=== PATIENT | male | born 1970 | race Caucasian/White ===

== ENCOUNTER → 2020-10-22 16:32 | Outpatient (CLI) | payer BC, SELFPAY ==
--- NOTE | 2020-10-22 16:45 | XR_ITS ---
PROCEDURE: XR ANKLE LT MIN 3V CLINICAL INDICATION: M25.572 Left ankle pain COMPARISON: No exams were available for comparison FINDINGS: There is an old ununited fracture at the base of the medial malleolus medially. This is nondisplaced. There are mild degenerative changes in the midfoot. Calcaneal spurs present and there are enthesophytes at the Achilles insertion. IMPRESSION: Old fracture at the medial malleolus. No acute finding. Dictated by: Basilio Rendon MD 10/22/2020 18:01 Basilio Renodn MD in [place] 10/22/2020 18:01
== END ==
PROVIDERS: PCP Family Medicine; Visit Provider Family Medicine
DX: M25.572 Pain in left ankle and joints of left foot (principal)
CPT/HCPCS: 73610

== ENCOUNTER 2020-11-12 11:56 | Emergency (ER) | payer BC, SELFPAY ==
[2020-11-12 12:16] VITALS: BP 151/90; PULSE 60; RESP 20; TEMP 36.8; O2SAT 98; BMI 46.2
--- NOTE | 2020-11-12 12:28 | HMH.EDUTC ---
[place] Disposition Clinical Impression: Encounter for laboratory testing for COVID-19 virus Disposition: Home, Self-Care Condition on Discharge: Good Instructions: DI for COVID-19 (Suspected or Confirmed ), Coronavirus Disease 2019, Preventing the Spread of Coronavirus Discharge Instructions Additional Instructions: *Monitor Temp, Over the counter Motrin or Tylenol as directed/as needed Tylenol every 4 hours and Motrin every 6 hours (as long as your family doctor has told you that you can take it) for fever or pain. and straight to ER if unable to lower temp less than 101.0 after medication given *Warm salt water gargles may help to soothe the throat *Throat Lozenges *Warm fluids like tea with honey may help to soothe the throat *Sleep elevated *Humidifier/Vaporizer Follow up IMMEDIATELY for new or worsening symptoms or no Noticeable improvement over the next 48-72 hours. 911 for difficulty breathing or swallowing If you had reaction to Etodolac you could have reaction to Motrin as they are similar medications so make sure to avoid these medication if they are causing you to have rash and itching and follow up with your Family Doctor You were tested for today for COVID19 your test result should be back in the next 24-48 hours, you may call to the [facility] to see if your test results are back in the next 48 hours [phone] [facility] hours are 9am-9pm You was given a handout with instructions for Self Quarantine and Self isolation for while you wait on test results and what to do if they are positive If you are positive the Health Dept will be contacting you also Referrals: Be Terrazas MD [Primary Care Provider] - As needed Forms: Work/School Release Time of Disposition: 12:34 Medical Decision Making - Mikel Inquiry Pt receiving controlled substance: No Mikel was queried for this patient: No Vital Signs: 11/12/20 12:16 Temperature 98.2 F Temperature Source Oral Pulse Rate [Left Radial] 60 Respiratory Rate 20 Blood Pressure [Left Arm] 151/90 H Blood Pressure Mean [Left Arm] 110 Blood Pressure Source [Left Arm] Automatic Cuff 02 Sat by Pulse Oximetry 98 Oxygen Delivery Method Room Air Orders (Tests/Meds): ORDERS Category Date Time Status Covid-19 Nasal PCR ([facility]) Routine Lab 11/12/20 12:20 Received [place] HPI - General Stated complaint: possible infection on Lt ankle Time Seen by Provider: 11/12/20 12:28 Mode of Arrival: Family Vehicle Source of Information: Patient Limitations: No Limitations Description of Symptoms (Recalled from Triage Doc. by RN): Pt initally reports that he thinks he had an allergic reaction to his medication Etodolac, that he began taking about 1.5 wk ago. Pt reports over the weekend he developed itching to his head and the back of his legs. Then, last night the itching was head to toe and he devloped a rash also. Pt also states he had a fever of 100.1 or 101, he can't remember. Pt denies any new changes to his food, laundry detergent, or habits. He denies N/V/D, SOB, or dyspnea. He reports some chest congestion without cough. 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 HEENT Symptoms (Recalled from RN notes): No Resp Symptoms (Recalled from RN notes): Yes Skin Symptoms (Recalled from RN notes): Yes MS Symptoms (Recalled from RN notes): Yes Functional Status (Recalled from RN notes): na - History of Present Illness Provider Complaint: Patient states that he was started on Etodolac over a week ago and he has been taking it as it was prescribed States that he noticed he was feeling a little itchy a couple days ago then last night he had a rash and felt like he had a fever States he took it with a temporal thermometer and contacted his PCP that told him to take some over the counter Benadryl and Tylenol States that the rash and itching then stopped and he felt better State that today his wanted him to get tested for COVID due to she is a high school coach and wanted to be
[2020-11-12 12:43] VITALS: BP 148/89; PULSE 64; RESP 19; TEMP 36.8; O2SAT 99
== END 2020-11-12 12:45 | disposition home or self-care (01) ==
PROVIDERS: Emergency Provider Nurse Practitioner; PCP Family Medicine
DX: Z20.822 Contact with and (suspected) exposure to COVID-19 (principal); L27.1 Localized skin eruption due to drugs and medicaments taken internally; T39.395A Adverse effect of other nonsteroidal anti-inflammatory drugs [NSAID], initial encounter; Y92.019 Unspecified place in single-family (private) house as the place of occurrence of the external cause
CPT/HCPCS: 99202; G0463; U0003

== ENCOUNTER 2021-01-15 13:39 | Outpatient (CLI) | payer BC, SELFPAY ==
[2021-01-15 14:30] VITALS: BMI 45.6
== END 2021-01-15 14:31 | disposition home or self-care (01) ==
PROVIDERS: PCP Family Medicine; Visit Provider Nurse Practitioner
DX: Z02.89 Encounter for other administrative examinations (principal)

== ENCOUNTER 2024-05-10 11:27 | Outpatient (CLI) | payer BC, SELFPAY ==
--- NOTE | 2024-05-10 11:37 | XR_ITS ---
FINAL REPORT CLINICAL HISTORY: TENDINITIS pt states checking for heel spurs COMPARISON: None FINDINGS: RIGHT FOOT 3 views of the right foot were obtained. There is no acute fracture or dislocation. There is a large plantar spur. Prominent Antonia deformity is noted. There is an ossific density over the dorsal aspect of the talonavicular measuring 6 mm. Soft tissues are unremarkable. IMPRESSION: Degenerative/chronic changes without acute bony abnormality. Large plantar spur. Reviewed, Interpreted and Dictated by Jaime Patiño MD Transcribed by Trisha Galicia Authenticated and [facility]
== END 2024-05-10 23:59 | disposition home or self-care (01) ==
LOC: RAD 11:31
PROVIDERS: PCP Family Medicine; Visit Provider Family Medicine
DX: M76.61 Achilles tendinitis, right leg (principal)
CPT/HCPCS: 73630

== ENCOUNTER 2024-06-13 15:00 | Outpatient (RCR) | payer BC, SELFPAY ==
--- NOTE | 2024-05-21 18:29 | HMH.PTOPEV ---
PT Outpatient Evaluation Rehab PT Outpatient Evaluation Start: 05/21/24 16:51 Freq: Status: Active Protocol: Document 05/21/24 16:51 NITA (Rec: 05/21/24 18:27 NITA [id number]) E-signed By Simon Ibrahim, PT Outpatient Therapy Subjective History Subjective History Patient is a 53 year old male presenting to outpatient PT with reports of L foot/ankle pain starting approx 1 year ago. Symptoms consistent with achilles tendonitis. Most recent imaging indicates old fracture of L medial malleolus . Patient occupation truck rental service attendant. Difficulty specifically with climbing into truck. No specific ZBIGNIEW to report. Other comorbidities include hx of cholecystectomy . New diagnosis of cancer in past 12 No months? Chief Complaint Pain,Stiff Symptom Type Sharp,Stabbing Symptoms Relieved By Rest/Positioning,Ice,OTC Meds Symptoms Aggravated By Standing,Physical Activity, Walking Prior Functional Limitations None Current Functional Limitations Housework,Driving,Standing, Walking Symptom Description Constant but Variable Level of pain today (0-10) 1 Pain scale - at its best (0-10) 1 Pain scale - at its worst (0-10) 5 Ankle/Foot Eval Gait Observation General Gait Pattern Observation Antalgic Gait,Decrease Weight Bear (L) Palpation Tenderness left Ankle/Foot Palpation Findings Tenderness Ankle/Foot Palpation Overall Comment distal achilles/medial malleolus ROM Ankle/Foot Dorsiflexion w/Knee Extended -5 Active Range Motion (degrees) Ankle/Foot Plantar Flexion Active Range 46 of Motion (degrees) Ankle/Foot Eversion Active Range of 22 Motion (degrees) Ankle/Foot Inversion Active Range of 19 Motion (degrees) Ankle/Foot ROM Reason Not Measured Within Functional Limits MMT Ankle Dorsiflexion Strength Grade 5 Normal Ankle Plantarflexion Strength Grade 5 Normal Foot Eversion Strength Grade 5 Normal Foot Inversion Strength Grade 5 Normal Special Tests Ankle Anterior Drawer Test Negative Left Ankle Eversion Test Negative Left Foot Interdigital Neuroma Test Negative Left Lower Extremity Functional Index Activities Today, do you or would you have any difficulty at all with: a.Any of your usual work, housework or Quite a bit of difficulty school activities b. Your usual hobbies, recreational or Quite a bit of difficulty sporting activities c. Getting into or out of the bath No difficulty d. Walking between rooms A little bit of difficulty e. Putting on your shoes or socks A little bit of difficulty f. Squatting Extreme difficulty or unable to perform activity g. Lifting an object, like a bag of No difficulty groceries from the floor h. Performing light activities around A little bit of difficulty your home i. Performing heavy activities around Quite a bit of difficulty your home j. Getting into or out of a car A little bit of difficulty k. Walking 2 blocks Extreme difficulty or unable to perform activity m. Going up or down 10 stairs (about 1 Quite a bit of difficulty flight of stairs) n. Standing for 1 hour Quite a bit of difficulty o. Sitting for 1 hour No difficulty p. Running on even ground Extreme difficulty or unable to perform activity q. Running on uneven ground Extreme difficulty or unable to perform activity r. Making sharp turns while running fast Extreme difficulty or unable to perform activity s. Hopping Extreme difficulty or unable to perform activity t. Rolling over in bed No difficulty Outpatient Therapy Assessment Impairments Problems/Impairmments Palpation Tenderness,Impaired Range of Motion,Impaired Gait Pattern,Impaired Walking, Impaired Standing,Impaired Driving,Impaired Household Care,Impaired Stair Climbing, Impaired Incline Stepping, Impaired Stepping on Uneven Surface,Impaired Squatting, Impaired Recreational Activities,Impaired Work Activities,Subjective C/O Pain Prognosis Rehab Potential Good Clinical Impression Consistent with Diagnosis Yes Short Term Goals Number of Weeks 2 Decrease Subjective C/O Pain Yes: 12/28 at worst Patient to be Ind w/ HEP Yes [facility] Goals Number of Weeks 4-6 Decreased Palpation Tenderness Yes: 08/24 Increase Range of Motion Yes: WNL Increase Strength Yes Increase Ability to Walk Yes: 45 min without difficulty Increase Ability to Stand Yes: Improve Tolerance to Work Activities Yes Improve LEFI Score Yes: >60 Decrease Subjective C/O Pain Yes: 08/30 at worst Outpatient Therapy Plan of Care Treatment Plan May Include Therapeutic Exercise Including Home Yes Exercise Program Manual Therapy Techniques Yes Neuromuscular Re-education Yes Therapeutic Activities to Return to Yes Previous Functional/Work Level Gait Training Yes ADL/Self Care Education Yes Dry Needling Yes Thermal Modalities Yes Electrical Stimulation Yes Ultrasound/Phonophoresis Yes Iontophoresis Yes Orthotics/Bracing/Splinting Yes Vasopneumatic Compression Pump Yes Massage Yes Manual Lymphatic Drainage Yes Eval/Re-Eval Yes Frequency Times per week 2-3 Duration Number of Weeks 4-6 Addendums This patient is a candidate for social No or vocational rehab? Patient/Guardian verbally acknowledges Yes understanding of treatment program and consents to further treatment? Patient/Guardian verbally acknowledges Yes understanding of diagnosis, prognosis and goals for treatment? Eval Complexity PT Charges 24922 - Moderate Complexity Shoulder/Elbow Eval Shoulder Objective Measurements Elbow Objective Measurements PHYSICIAN CERTIFICATION: I certify the specified therapy services for Colin Sal are required, authorized, and reviewed every 30 days.
== END 2024-06-13 23:59 | disposition home or self-care (01) ==
LOC: PT 15:00
PROVIDERS: Visit Provider Family Medicine
DX: M76.61 Achilles tendinitis, right leg (principal)
CPT/HCPCS: 97014; 97035; 97110; 97163; 97530; G0283

== ENCOUNTER 2024-07-15 11:19 | Day surgery (SDC) | payer BC, SELFPAY ==
[2024-07-12 12:07] VITALS: BMI 49.7
[2024-07-15] MEDS: LACTATED RINGERS 1000ML 1,000 ML 25 ML IV (12:23)
[2024-07-15 12:25] VITALS: BP 154/93; PULSE 73; RESP 18; TEMP 36.1; O2SAT 95
[2024-07-15 12:27] LABS: POC Glucose,Bedside 91 (70-110)
--- NOTE | 2024-07-15 12:56 | EXP.ANES.CKL ---
[facility] Disclaimer: The information contained in this section may have been updated after the patient was seen, as this information can be updated by other users. Medical History (Updated 07/15/24 @ 12:25 by Rocael Neves RN) No significant past medical history Surgical History History of tonsillectomy History of cholecystectomy Family History Other Diabetes Heart disease Social History (Reviewed 07/15/24 @ 12: by Rocael Neves RN) Smoking Status: Former smoker alcohol intake: never substance use type: denies use current occupational status: employed [employer] Anesthesia Checklist Patient Identification Patient Identification: Verbal (Name & ) Structural Data Admitted From: Home Planned Operative Procedure/s: colonoscoy Consent for Planned Operative Procedure(s) Verified: Yes NPO Status Verified Time NPO: 00:00 Airway Assessment Mallampati Score:: Class II C-Spine Mobility Assessed: Yes TMJ Mobility Assessed: Yes Dentition: Good Dentition Neurological Assessment Level of Consciousness: Awake, Alert and Appropriate Anesthesia Plan Anesthesia Risk discussed: Yes Anesthesia Plan: Verified ASA Class: III Anesthesia Type: MAC
--- NOTE | 2024-07-15 13:31 | P.HP_ITS ---
History of Present Illness *Admission Date: 07/15/24 *Reason for visit:: Screening *History of present illness: Mr. Sal is a 53-year-old gentleman who is here for initial screening colonoscopy. The examination is deemed medically necessary for screening colonoscopy. The patient has been seen, interviewed and examined prior to the procedure by both myself and the anesthesia provider. [facility] Disclaimer: The information contained in this section may have been updated after the patient was seen, as this information can be updated by other users. Medical History (Updated 07/15/24 @ 13:40 by Marino Leal II, MD) No significant past medical history Surgical History History of tonsillectomy History of cholecystectomy Family History Other Diabetes Heart disease Social History (Updated 07/15/24 @ 12:57 by Mckay Hollingsworth CRNA) Smoking Status: Former smoker alcohol intake: never substance use type: denies use current occupational status: employed Travel in the last 8 weeks: None Other Medical History Have you received the Flu Vaccine for this season: No Have you received the Pneumonia Vaccine: No Review of Systems Review of Systems Review of systems (narrative): Negative *Cardiovascular Comments: Negative *Gastrointestinal Comments: Negative *Genitourinary Comments: Negative *Musculoskeletal Comments: Negative *Neurologic Comments: Negative Meds Home Medications and Allergies Home Medications ?Medication ?Instructions ?Recorded ?Confirmed ?Type No Known Home Medications 07/15/24 07/15/24 History New Prescriptions to Start Prescriptions: Allergies Allergy/AdvReac Type Severity Reaction Status Date / Time etodolac AdvReac Mild Rash Verified 07/12/24 12:01 Exam Data for Last 24 hours Vital signs and Labs for Last 24 Hours: Temp Pulse Resp BP Pulse Ox O2 Del Method 97.0 F L 73 18 154/93 H 95 Room Air 07/15/24 12:07/15/24 12:07/15/24 12:07/15/24 12:07/15/24 12:07/15/24 12:25 Laboratory Results - last 24 hr 07/15/24 12:20: POC Glucose 91 I & O for Last 24 hours: Intake & Output 07/12/24 07/13/24 07/14/24 11/25/24 23:59 23:59 23:59 23:59 Weight 400 lb 0.001 oz *Routine HEENT Exam Head: Present normocephalic Eye: Present EOMI and PERRL ENT: Present mucous membranes moist *Routine Neck Exam Neck: Present supple *Routine Respiratory Exam Respiratory: Present CTA bilaterally *Routine Cardiovascular Exam Cardiovascular: Present RRR *Routine Abdominal Exam Abdominal: Present soft and normoactive bowel sounds; Absent tenderness *Routine Rectal Exam Rectal:: deferred *Routine Genitalia Exam Genitalia:: deferred *Routine Extremities Exam Extremities: Absent cyanosis, clubbing or edema *Routine Skin Exam Skin: Present warm; Absent rash *Routine Neurological Exam Neurological: Present alert and oriented X3 Assessment and Plan *Assessment and plan (1) Screening for colon cancer: Status: Acute Category: Medical Code(s): Z12.11 - Encounter for screening for malignant neoplasm of colon Plan A/P: 1. Screening for colon cancer is the preprocedural diagnosis. The patient will be anesthetized/sedated using MAC sedation. The patient has been seen and examined. Cardiac and lung assessment prior to the examination is stable. Proceed with planned screening colonoscopy
[2024-07-15 13:39] VITALS: O2SAT 95
--- NOTE | 2024-07-15 13:40 | P.PCN_ITS ---
[facility] Procedure Note Date: 07/15/24 Time: 13:58 Procedure Note:: Colonoscopy Procedure Report: Colonoscopy with cold snare polypectomy Endoscopist: Marino Leal II, MD Referring physician: Be Terrazas MD Date of Procedure: July 15, 2024 Equipment: Olympus 190 variable stiffness pediatric colonoscope Sedation: MAC sedation Indication: Mr. Sal is a 53-year-old gentleman who is here for initial screening colonoscopy. He reports no abdominal pain, weight loss, change in his bowel habits or rectal bleeding. He reports no family history of colon cancer. Procedure: Prior to the procedure, a history and physical exam was performed, and patient's medications and allergies were reviewed. The risks, benefits and alternatives of the sedation and procedure were discussed with the patient. All questions were answered and informed consent was obtained. The patient was brought to the procedure room. Patient identification and proposed procedure were verified by the physician and the nurse. The patient was placed in a left lateral decubitus position and the scope was passed under direct vision. Throughout the procedure, the patient's blood pressure, pulse, and oxygen saturations were monitored continuously. The colonoscopy was accomplished without difficulty. The patient tolerated the procedure well. Findings: On digital rectal examination there was normal rectal tone. There were no external hemorrhoids. The prostate was 2+, smooth, soft, symmetric without nodules. The colonoscope was introduced through the anal canal to the rectum and advanced to the cecum. The ileocecal valve and appendiceal orifice were identified. The scope was advanced a short distance into the ileum which appeared grossly normal. The scope was then withdrawn into the colon. The cecum, ascending and transverse colon and mucosa were grossly normal. There was a 4 mm polyp in the descending colon removed via cold snare polypectomy. There were scattered diverticuli throughout the descending and sigmoid colon (LEFT colon). The rectum itself was normal. Upon retroflexion within the rectum there were grade 2 internal hemorrhoids. The preparation was excellent throughout with Hull Preparation Score of 9. The cecal time was 12 minutes. Impression: 1. Diminutive descending colon polyp (4 mm) 2. Left-sided diverticulosis 3. Grade 2 internal hemorrhoids Plan: I will follow-up the polyp histology and recommend repeat surveillance colonoscopy again in 7 years based upon the pathology. I would encourage bulking psyllium fiber supplementation on a maintenance basis.
[2024-07-15 13:59] VITALS: BP 137/91; PULSE 77; RESP 18; TEMP 36.1; O2SAT 96
[2024-07-15 14:09] VITALS: BP 131/91; PULSE 84; RESP 18; O2SAT 98
[2024-07-15 14:19] VITALS: BP 138/67; PULSE 79; RESP 18; O2SAT 98
[2024-07-15 15:00] VITALS: BP 148/80; PULSE 70; RESP 18; O2SAT 97
== END 2024-07-15 15:00 | disposition home or self-care (01) ==
PROVIDERS: PCP Family Medicine; Visit Provider Internal Medicine Gastroenterology
PROC: (CPT 45385; principal; 2024-07-15 13:30)
DX: K63.5 Polyp of colon (principal); K57.30 Diverticulosis of large intestine without perforation or abscess without bleeding; K64.1 Second degree hemorrhoids; Z12.11 Encounter for screening for malignant neoplasm of colon
CPT/HCPCS: 45385; 82962; J7120

== ENCOUNTER 2025-08-18 16:39 | Outpatient (CLI) | payer BC, SELFPAY ==
--- OUTSIDE RECORDS SUMMARY | 2024-05-10 05:45 | XMS_ITS ---
Author Organization [facility] Address [address] [place] [id number] Care Team Providers Care Seismographer Name Role Phone Be Terrazas Primary Care Provider Allergies Allergen (clinical drug ingredient) Drug/Non Drug Allergy documented on EMR Reaction Allergy Type Onset Date Status Medicinal cephalosporin and acting as antibacterial agent (FN) SPORINS (uncoded) rash Allergy Active Results Component Value Reference Range Notes P-Comprehensive Metabolic Pa niyah (CMP) Reviewed date:05/13/2024 09:51:05 AM Interpretation:gluc 109 Performing Lab: Notes/Report: Test performed by [facility] [address] [place] [address] , [address], [place] [address] Ino Tran MD, [employer] CLIA: [id number] Sodium 142 135-145 mmol/L Potassium 4.6 3.5-5.3 mmol/L Chloride 103 97-108 mmol/L CO2 29 22-32 mmol/L Glucose 109 65-99 mg/dL BUN 18 6-20 mg/dL Creatinine 0.91 0.70-1.30 mg/dL Calcium 9.3 8.6-10.4 mg/dL eGFR by Creatinine 102 >59 mL/min/1.73m2 Protein 7.1 6.0-8.3 g/dL Albumin 4.2 3.5-5.3 g/dL Alkaline Phosphatase 58 40-129 IU/L ALT (SGPT) 25 <5-55 IU/L AST (SGOT) 15 <5-46 IU/L Bilirubin, Total 0.7 <0.2-1.2 mg/dL A/G Ratio 1.4 1.1-2.5 P-Lipid Panel Reviewed date:05/13/2024 09:51:05 AM Interpretation:chol 203, hdl 36, chol/hdl 5.64, non-hdl 167, ldl 138, ldl/hdl 3.8 Performing Lab: Notes/Report: Test performed by [facility], [facility] [address] , [address], [place] [address] Ino Tran MD, T[employer]ic CLIA: [id number] Cholesterol 203 <200 mg/dL Triglycerides 145 <150 mg/dL HDL Cholesterol 36 >39 mg/dL Cholesterol / HDL Ratio 5.64 0.00-4.99 Ratio Non-HDL Cholesterol 167 <130 mg/dL LDL Cholesterol (Calculation) 138 <130 mg/dL LDL Cholesterol Levels* Less than 100 mg/dL Optimal 100 to 129 mg/dL Near Optimal/ Above Optimal 130 to 159 mg/dL Borderline High 160 to 189 mg/dL High 190 mg/dL and above Very High * Categories as recommended by the 2004 ATPIII guidelines LDL/HDL Ratio 3.8 <3.3 Ratio LDL Cholesterol Patient History Test Date: 05/10/2024 LDL Results: 138 Units: mg/dL % Change: - P-PSA Reviewed date:05/13/2024 09:51:05 AM Interpretation:Normal Performing Lab: Notes/Report: Test performed by [facility] [address] [place] [address] , [address], [place] [address] Ino Tran MD, Tire Shop Mechanic CLIA: [id number] PSA 0.35 <4.00 ng/mL Please note this is an ultrasensitive PSA assay with a lower limit of detection of 0.014 ng/mL. This test is performed by the Karla ECLIA methodology. Values obtained with different assay methods or kits cannot be directly compared. P-TSH reflex to FT4 Reviewed date:05/13/2024 09:51:05 AM Interpretation:Normal Performing Lab: Notes/Report: Test performed by [facility] [address] [place] [address] , [address], [place] [address] Ino Tran MD, Tire Shop Mechanic CLIA: [id number] TSH reflex to FT4 2.60 0.43-5.25 mU/L X ray : Foot, right Reviewed date:05/13/2024 09:51:05 AM Interpretation: Performing Lab: Notes/Report: Reason For Referral Reason Patent prefers a lat e afternoon appt. at [facility] Diagnosis 1 Right Achilles tendi nitis (M76.61) Referral Organization [facility] Referring Provider First Name Be Referring Provider Last Name Mk Referring Provider Speciality Family Pra ctice Referred Provider Physical Therapy, . Referred Provider Specialty Physical The rapist General Notes Mara Hollingsworth 05/13/20 24 9:02:28 AM > faxed to [facility] PT Referral Priority Routine REASON FOR VISIT check up and blood work, trouble with heel Medications Medication SIG (Take, Route, Fr equency, Duration) Notes Start Date End Date Status Tylenol 325 MG 1 tablet as needed Orally every 6 hrs Active Problems Problem Type SNOMED Code ICD Code Onset Dates Problem Status W/U Status Risk Notes Problem Pure hypercholesterolemia (223823648) Pure hypercholesterolemia (E78.00) Active confirmed Vital Signs Blood pressure systolic 130 mm Hg 05/10/20 24 Blood pressure diastolic 70 mm Hg 024 Heart Rate 73 /min 05/10/2024 Height 72.75 in 05/10/2024 Weight 397.8 lbs 05/10/2024 BMI 52.84 kg/m2 05/10/2024 Encounters Encounter Location Date Provider Diagnosis [facility] [address] [facility] [address] [place] [phone] 05/10/2024 Be Terrazas Pure hypercholestero lemia E78.00 ; Right Achilles tendinitis M76.61 ; Prostate cancer screening Z12.5 ; Colon cancer screening Z12.11 ; Sebaceous cyst L72.3 and Morbid obesity due to excess calories E66.01 Assessments Encounter Date Diagnosis (ICD Code) Assessment Notes Treatment Notes Treatment Clinical Notes Section Notes 05/10/2024 Pure hypercholesterolemia (ICD-10 - E78.00) 05/10/2024 Right Achilles tendinitis (ICD-10 - M76.61) 05/10/2024 Prostate cancer screening (ICD-10 - Z12.5) 05/10/2024 Colon cancer screeni ng (ICD-10 - Z12.11) 05/10/2024 Sebaceous cyst (ICD- 10 - L72.3) Plan excision at follow up 05/10/2024 Morbid obesity due t o excess calories (ICD-10 - E66.01) Discussed using Wegovy Plan Of Treatment Treatment Notes Assessment Notes Sebaceous cyst Plan excision at [facility] [place] Morbid obesity due to excess calories Di scussed using Wegovy Pending Test Test Name Order Date colonoscopy 05/10/2024 Referrals Referral Date Details 05/10/2024 05/10/2024, Patent p refers a late afternoon appt. at [facility], . Physical Therapy Next Appt Details Follow Up: skin procedure on a Monday, Reason: Provider Name:Be Galo , 08/18/2025 04:15:00 PM, [address] [facility], [address], [place], [id number], Progress Notes * Sylwia ALICEAOB:1970 ( 54 yo M)Acc No.[id number]:05/10/2024 Progress Notes Patient: Colin SMITH Provider: Juan Luis Terrazas M.D. :1970 A ge:53 Y S ex:Male Date:05/10/2024 Address:[address] [place] [address], [place], [id number] Subjective: * Chief Complaints: * 1 . Check up and blood work, trouble with heel. * HPI: A nkle/Foot: 53 year old male presents with c/o Pain P t is here today for c/o having trouble with his right heel. Pt was here in December for pain in his rt Achilles tendon. Pt sts he takes an extra strength Tylenol and sts that it helps some and makes it manageable. H PI: c/o Patient is here today for P t is here today for a check up and blood work. N clau: c/o No complaints P t sts he had a place cut off of his neck before, but sts he would like it looked at as it may need cut out again. Pt sts that at times it does itch. * ROS: D ERMATOLOGY: no R lola. n o H kirstie. G ASTROENTEROLOGY: no N ausea. n o V omiting. U ROLOGY: no D ifficulty urinating. n o B lood in urine. * Medical History: H yperlipidemia, External Hemorrhoids, Kidney stones. * Surgical History: T onsillectomy 1994, Cholecystectomy 1997, Vasectomy 2009. * Hospitalization/Major Diagno stic Procedure: D enies Past Hospitalization. * Family History: F ather: , diagnosed with Heart Disease. M other: alive. P aternal Grand Father: . P aternal Grand Mother: , diagnosed with Diabetes. M aternal Grand Father: . M aternal Grand Mother: , diagnosed with Diabetes. 1 brother(s) , 2 sister(s) - healthy. 2 son(s) , 1 daughter(s) - healthy. . * Social History: C URRENT TOBACCO USE: No . C affeine: yes, frequency: coffee, soda drinks - daily. Home smoke detector use: yes. Alcohol: No. * Medications: T aking Tylenol 325 MG Tablet 1 tablet as needed Orally every 6 hrs , Medication List reviewed and reconciled with the patient * Allergies: SPORINS : rash - Allergy. Objective: * Vitals: W t:397.8, Temp:99.0, BP:130/70, HR:73, O2 Sat:97% on RA, Nurse:DEMETRIS, Ht: 72.75, BMI:52.84. * Examination: G eneral Examination: General Appearance: N AD. H eart: R SR. L ungs:?clear to auscultation. S kin: l eft lateral neck with a 7 mm wide subcutaneous mass.?Extremities: s ome swelling and tenderness to palpation over the lower right Achilles insertion. Assessment: * Assessment: 1. P ure hypercholesterolemia - E78.00 (Primary) 2 . R ight Achilles tendinitis - M76.61 3 . P rostate cancer screening - Z12.5 4 . C olon cancer screening - Z12.11 5 . S ebaceous cyst - L72.3 6 . Morbid obesity due to excess calories - E66.01 Plan: * Treatment: Value Reference Range A /G Ratio 1.4 1.1-2.5 - * A lbumin 4.2 3.5-5.3 - g/dL * A lkaline Phosphatase 58 40-129 - IU/L * A LT (SGPT) 25 <5-55 - IU/L * A ST (SGOT) 15 <5-46 - IU/L * B ilirubin, Total 0.7 <0.2-1.2 - mg/dL * B UN 18 6-20 - mg/dL * C alcium 9.3 8.6-10.4 - mg/dL * C hloride 103 97-108 - mmol/L * C O2 29 22-32 - mmol/L * C reatinine 0.91 0.70-1.30 - mg/dL * G lucose 109 H 65-99 - mg/dL * P otassium 4.6 3.5-5.3 - mmol/L * S odium 142 135-145 - mmol/L * P rotein 7.1 6.0-8.3 - g/dL * e GFR by Creatinine 102 >59 - mL/min/1.73m2 * Ebony Grissom 05/13/2024 9:50: 58 AM >See phone encounter ?LAB: P-Lipid Panel (Collection Date & Time - 05/10/2024 10:20 AM)?chol 203, hdl 36, chol/hdl 5.64, non-hdl 167, ldl 138, ldl/hdl 3.8* Value Reference Range C holesterol / HDL Ratio 5.64 H 0.00-4.99 - Ratio * C holesterol 203 H <200 - mg/dL * H DL Cholesterol 36 L >39 - mg/dL * L DL Cholesterol (Calculation) 138 H <130 - mg/d L * L DL/HDL Ratio 3.8 H <3.3 - Ratio * N on-HDL Cholesterol 167 H <130 - mg/dL * T riglycerides 145 <150 - mg/dL * Ebony Grissom 05/13/2024 9:50: 58 AM >See phone encounter ?LAB: P-TSH reflex to FT4 (Collection Date & Time - 05/10/2024 10:20 AM)? Normal* Value Reference Range T SH reflex to FT4 2.60 0.43-5.25 - mU/L * Ebony Grissom 05/13/2024 9:50: 58 AM >See phone encounter 2.?Right Achilles tendinitis?Imaging: X ray : Foot, right (Performed Date - 05/10/2024)* Ebony Grissom 05/13/2024 9:50: 58 AM >See phone encounter ? Referral To:. Physical Therapy??Physical Therapist ?Reason:Patent prefers a late afternoon appt. at [facility] 3.?Prostate cancer screening?LAB: P-PSA (Collection Date & Time - 05/10/2024 10:20 AM)?Normal* Value Reference Range P SA 0.35 <4.00 - ng/mL * Ebony Grissom 05/13/2024 9:50: 58 AM >See phone encounter 4.?Colon cancer screening?Imaging: colonoscopy* [facility] with Elvis on a Monday Mara Hollingsworth 05/10/2024 11:23:40 AM > faxed to Dr. Leal office 5.?Sebaceous cyst? Notes: Plan excision at follow up??6.?Morbid obesity due to excess calories? Notes: Discussed using Wegovy?? * Follow Up: s kin procedure on a Monday * Images: Billing Information: * Visit Code: 35552 Office Visit, Est Pt., Level 4. * Procedure Codes: * Electronic signature of Allison Terrazas MD on 08/18/2025 at 04:42 PM EST Sign off status: Pending * Provider: Juan Luis Terrazas M.D. Date: 0 05/10/2024 Generated for Gen tee/Isabelle/eTransmitting on: 1 04:42 PM EST History and Physical Notes * HPI (History of Present Illness) Category Sub-Category Detail Notes Category Not es Neck No complaints Pt sts he had a place cut off of his neck before, but sts he would like it looked at as it may need cut out again. Pt sts that at times it does itch Ankle/Foot Pain Pt is here today for c/o having trouble with his right heel. Pt was here in December for pain in his rt Achilles tendon. Pt sts he takes an extra strength Tylenol and sts that it helps some and makes it manageable HPI Patient is here today for Pt is here today for a check up and blood work Examination Category Sub-Category Detail Notes Category Not es General Examination Heart: RSR Lungs: clear to auscultatio n Extremities: some swelling and te nderness to palpation over the lower right Achilles insertion General Appearance: NAD Skin: left lateral neck wi th a 7 mm wide subcutaneous mass Consultation Request Notes Referral Date Referring Provider Referred Provider Not es 05/10/2024 Be Terrazas Physical Therapy, . Fidel valenzuela prefers a late afternoon appt. at [facility]
--- OUTSIDE RECORDS SUMMARY | 2024-06-03 12:30 | XMS_ITS ---
Author Organization [facility] Address [address] [facility] [address] [place] [id number] Care Team Providers Care Free Lance Artist Name Role Phone Be Terrazas Primary Care Provider [phone] Allergies Allergen (clinical drug ingredient) Drug/Non Drug Allergy documented on EMR Reaction Allergy Type Onset Date Status Medicinal cephalosporin and acting as antibacterial agent (FN) SPORINS (uncoded) rash Allergy Active REASON FOR VISIT Cyst Removed from Neck Medications Medication SIG (Take, Route, Fr equency, Duration) Notes Start Date End Date Status Tylenol 325 MG 1 tablet as needed Orally every 6 hrs Active Vital Signs Blood pressure systolic 130 mm Hg 06/03/20 24 Blood pressure diastolic 72 mm Hg 024 Heart Rate 86 /min 06/03/2024 Height 72.75 in 06/03/2024 Weight 401 lbs 06/03/2024 BMI 53.26 kg/m2 06/03/2024 Encounters Encounter Location Date Provider Diagnosis [facility] [address] [facility] [address] [place] [id number] 06/03/2024 Be Terrazas Sebaceous cyst L72.3 Assessments Encounter Date Diagnosis (ICD Code) Assessment Notes Treatment Notes Treatment Clinical Notes Section Notes 06/03/2024 Sebaceous cyst (ICD-10 - L72.3) Plan Of Treatment Next Appt Details Follow Up: 1 Week, Reason: Provider Name:Be gunter, 08/18/2025 04:15:00 PM, [address] [facility], [address], [place], [phone], Procedure Notes * Category Sub-Category Detail Notes Excision Pre-Op diagnosis: sebaceous cyst Post-Op diagnosis same Location and size: left, neck, 7 mm wid e Anesthesia: 1% Lidocaine with Ep inephrine, 1 mL Pre-Op: Informed consent was reviewed with the patient, treatment alternatives were discussed, consequences of refusal of treatment discussed, risks and benefits discussed including but not limited to scarring, infection, bleeding, recurrence, need for further treatment., The patient's questions were answered to his/her satisfaction., Signed consent in chart Procedure: The patient was plac ed in a supine position. The area was prepped and draped in sterile fashion. Four mm margins were taken to the level of the subcutaneous fat with a # 15 blade scalpel. The lesion was removed with Adson forceps and Frost tenotomy scissors. Hemostasis was accomplished with electrocautery and pressure Closure: 4-0 Ethilon was plac ed in a simple interrupted manner (3 sutures total) in the epidermis Follow up: 7 days for suture re moval Post-Op wound care: Daily antibiotic oin tment, Pt to notify office if any difficulty Progress Notes * Sylwia ALICEAOB:1970 ( 54 yo M)Acc No.[id number]:06/03/2024 Progress Notes Patient: Colin SMITH Provider: Juan Luis Terrazas M.D. :1970 A ge:53 Y S ex:Male Date:06/03/2024 Address:[address] [place] [address], [place], [place] Subjective: * Chief Complaints: * 1 . Cyst Removed from Neck. * HPI: D ermatology: 53 year old male presents with c/o cyst P t here today for sebaceous cyst removal from behind L ear . * ROS: D ERMATOLOGY: no R lola. n o H kirstie. G ASTROENTEROLOGY: no N ausea. n o V omiting. U ROLOGY: no D ifficulty urinating. n o B lood in urine. * Medical History: H yperlipidemia, External Hemorrhoids, Kidney stones. * Surgical History: T onsillectomy 1994, Cholecystectomy 1997, Vasectomy 2009. * Family History: F ather: , diagnosed [...] rash - Allergy. Objective: * Vitals: W t:401, Temp:98.1, BP:130/72, HR:86, Nurse:lilia, Ht: 72.75, BMI:53.26. * Examination: G eneral Examination: General Appearance: N AD. H eart: R SR. L ungs:?clear to auscultation. S kin: l eft lateral neck with a 7 mm wide subcutaneous mass.? Assessment: * Assessment: 1. S ebaceous cyst - L72.3 (Primary) Plan: * Treatment: * Procedures: E xcision: Pre-Op diagnosis: s ebaceous cyst. P ost-Op diagnosis?same. L ocation and size: l eft, neck, 7 mm wide. A nesthesia: 1 % Lidocaine with Epinephrine, 1 mL. P re-Op: I nformed consent was reviewed with the patient, treatment alternatives were discussed, consequences of refusal of treatment discussed, risks and benefits discussed including but not limited to scarring, infection, bleeding, recurrence, need for further treatment., The patient's questions were answered to his/her satisfaction., Signed consent in chart. P rocedure: T he patient was placed in a supine position. The area was prepped and draped in sterile fashion. Four mm margins were taken to the level of the subcutaneous fat with a # 15 blade scalpel. The lesion was removed with Adson forceps and Frost tenotomy scissors. Hemostasis was accomplished with electrocautery and pressure. C losure: 4 -0 Ethilon was placed in a simple interrupted manner (3 sutures total) in the epidermis. F ollow up: 7 days for suture removal. P ost-Op wound care: D aily antibiotic ointment, Pt to notify office if any difficulty. * Procedure Codes: 1 1401 EXCISION BENIGN LESION, TRUNK,ARMS,LEG, 0.6 TO 1.0 CM * Follow Up: 1 Week * Images: Billing Information: * Visit Code: * Procedure Codes: 44495 EXCISION BENIGN LESION, TRUNK,ARMS,LEG, 0.6 TO 1.0 CM. * Electronic signature of Allison Terrazas MD on 08/18/2025 at 04:42 PM EST Sign off status: Pending * Provider: Juan Luis Terrazas M.D. Date: 1 Generated for Gen tee/Isabelle/Cliff on: 04:42 PM EST History and Physical Notes * HPI (History of Present Illness) Category Sub-Category Detail Notes Category Not es Dermatology cyst Pt here today fo r sebaceous cyst removal from behind L ear Examination Category Sub-Category Detail Notes Category Not es General Examination Heart: RSR Lungs: clear to auscultatio n General Appearance: NAD Skin: left lateral neck wi th a 7 mm wide subcutaneous mass
--- OUTSIDE RECORDS SUMMARY | 2024-06-10 10:00 | XMS_ITS ---
Author Organization [facility] Address [address] [facility] [address] [place] [phone] Care Team Providers Care Chinese Herbalist Name Role Phone Be Terrazas Primary Care Provider Allergies Allergen (clinical drug ingredient) Drug/Non Drug Allergy documented on EMR Reaction Allergy Type Onset Date Status Medicinal cephalosporin and acting as antibacterial agent (FN) SPORINS (uncoded) rash Allergy Active REASON FOR VISIT remove stiches Medications Medication SIG (Take, Route, Fr equency, Duration) Notes Start Date End Date Status Tylenol 325 MG 1 tablet as needed Orally every 6 hrs Active Vital Signs Blood pressure systolic 130 mm Hg 06/10/20 24 Blood pressure diastolic 70 mm Hg 024 Heart Rate 85 /min 06/10/2024 Height 72.75 in 06/10/2024 Weight 401.6 lbs 06/10/2024 BMI 53.34 kg/m2 06/10/2024 Encounters Encounter Location Date Provider Diagnosis [facility] [address] [facility] [address] [place] [phone] 06/10/2024 Be Terrazas Visit for suture removal Z48.02 Assessments Encounter Date Diagnosis (ICD Code) Assessment Notes Treatment Notes Treatment Clinical Notes Section Notes 06/10/2024 Visit for suture removal (ICD-10 - Z48.02) Plan Of Treatment Next Appt Details Follow Up: prn, Reason: Provider Name:Be gunter, 08/18/2025 04:15:00 PM, [address] [facility], [address], [place], [phone], Procedure Notes * Category Sub-Category Detail Notes Suture Removal Procedure: The area was doris ansed with alcohol, sutures were removed with forceps and suture cutting scissors Progress Notes * Sylwia ALICEAOB:1970 ( 54 yo M)Acc No.[id number]:06/10/2024 Progress Notes Patient: Colin SMITH Provider: Juan Luis Terrazas M.D. :1970 A ge:53 Y S ex:Male Date:06/10/2024 Address:[address] [place] [address], [facility] Subjective: * Chief Complaints: * 1 . Remove stiches. * HPI: D ermatology: 53 year old male presents with c/o cyst P t here to have stitches removed from behind lt ear. Pt had cyst removed 06/03/2024. * ROS: C ARDIOLOGY: no D izziness. n o C hest pain. G ASTROENTEROLOGY: no N ausea. n o [...] rash - Allergy. Objective: * Vitals: W t:401.6, Temp:97.8, BP:130/70, HR:85, Nurse:lilia, Ht: 72.75, BMI:53.34. * Examination: G eneral Examination: General Appearance: N AD. S kin: s kin posterior to left ear with a well healed surgical wound with [address] Assessment: * Assessment: 1. V isit for suture removal - Z48.02 (Primary) Plan: * Treatment: * Procedures: S uture Removal: Procedure: T he area was cleansed with alcohol, sutures were removed with forceps and suture cutting scissors. * Follow Up: p rn * Images: Billing Information: * Visit Code: * Procedure Codes: * Electronic signature of Allison Terrazas MD on 08/18/2025 at 04:42 PM EST Sign off status: Pending * Provider: Juan Luis Terrazas M.D. Date: 1 Generated for Gen tee/Isabelle/Melanyitting on: 04:42 PM EST History and Physical Notes * HPI (History of Present Illness) Category Sub-Category Detail Notes Category Not es Dermatology cyst Pt here to have stitches removed from behind lt ear. Pt had cyst removed 06/03/2024 Examination Category Sub-Category Detail Notes Category Not es General Examination General Appearance: NAD Skin: skin posterior to le ft ear with a well healed surgical wound with [address]
--- OUTSIDE RECORDS SUMMARY | 2024-06-28 10:45 | XMS_ITS ---
Author Organization [facility] Address [address] [place] [phone] Care Team Providers Care Carbon Lamp Cleaner Name Role Phone Be Terrazas Primary Care Provider Allergies Allergen (clinical drug ingredient) Drug/Non Drug Allergy documented on EMR Reaction Allergy Type Onset Date Status Medicinal cephalosporin and acting as antibacterial agent (FN) SPORINS (uncoded) rash Allergy Active REASON FOR VISIT muscle spasms Medications Medication SIG (Take, Route, Fr equency, Duration) Notes Start Date End Date Status Tylenol 325 MG 1 tablet as needed O rally every 6 hrs Active tiZANidine HCl 4 MG 1 tablet as needed O rally Three times a day 06/28/2024 Active Vital Signs Blood pressure systolic 126 mm Hg 06/28/20 24 Blood pressure diastolic 74 mm Hg 024 Heart Rate 90 /min 06/28/2024 Height 72.75 in 06/28/2024 Weight 404 lbs 06/28/2024 BMI 53.66 kg/m2 06/28/2024 Encounters Encounter Location Date Provider Diagnosis [facility] [address] [facility] [address] [place] [phone] 06/28/2024 Be Terrazas Acute left-sided low back pain, unspecified whether sciatica present M54.50 and Muscle spasm of back M62.830 Assessments Encounter Date Diagnosis (ICD Code) Assessment Notes Treatment Notes Treatment Clinical Notes Section Notes 06/28/2024 Acute left-sided low back pain, unspecified whether sciatica present (ICD-10 - M54.50) heating pad to affected areas 2 to 3 times a day 06/28/2024 Muscle spasm of back (ICD-10 - M62.830) Plan Of Treatment Medication Medication Name Sig Start Date Stop Date Notes tiZANidine HCl 4 MG 1 tablet as needed O rally Three times a day 06/28/2024 Treatment Notes Assessment Notes Acute left-sided low back pa in, unspecified whether sciatica present heating pad to affected areas 2 to 3 times a day Next Appt Details Follow Up: via phone to repo rt progress, Reason: Provider Name:Be Galo ry, 08/18/2025 04:15:00 PM, [address], [address], [place], [place], [phone], Progress Notes * Sylwia ALICEAOB:1970 ( 54 yo M)Acc No.[id number]:06/28/2024 Progress Notes Patient: Colin SMITH Provider: Juan Luis Terrazas M.D. :1970 A ge:53 Y S ex:Male Date:06/28/2024 Address:[address] [place] [address], [facility], [facility] Subjective: * Chief Complaints: * 1 . Muscle spasms. * HPI: M id Back: 53 year old male presents with c/o Left Side P t complains of pain in the middle of his back on the lt side for about a week. Pt states he had this issue in the past and was told it is muscle spasms . Pt states when he pulls himself into his truck the pain worsens . * ROS: D ERMATOLOGY: no R [...] rash - Allergy. Objective: * Vitals: W t:404, Temp:98.1, BP:126/74, HR:90, Nurse:lilia, Ht: 72.75, BMI:53.66. * Examination: G eneral Examination: General Appearance: N AD. B ack: l eft upper lumbar paraspinal muscle spasms with some tenderness to palpation. Assessment: * Assessment: 1. A cute left-sided low back pain, unspecified whether sciatica present - M54.50 (Primary)? 2. M uscle spasm of back - M62.830 Plan: * Treatment: 2. M uscle spasm of back Start tiZANidine HCl Tablet, 4 MG, 1 tablet as needed, Orally, Three times a day, 45, Refills 0.? * Follow Up: v ia phone to report progress * Images: Billing Information: * Visit Code: 96115 Office Visit, Est Pt., Level 3. * Procedure Codes: * Electronic signature of Allison Terrazas MD on 08/18/2025 at 04:41 PM EST Sign off status: Pending * Provider: Juan Luis Terrazas M.D. Date: 08/28/2023 Generated for Gen tee/Isabelle/Cliff on: 04:41 PM EST History and Physical Notes * HPI (History of Present Illness) Category Sub-Category Detail Notes Category Not es Mid Back Left Side Pt complains of pain in the middle of his back on the lt side for about a week. Pt states he had this issue in the past and was told it is muscle spasms . Pt states when he pulls himself into his truck the pain worsens Examination Category Sub-Category Detail Notes Category Not es General Examination General Appearance: NAD Back: left upper lumbar pa raspinal muscle spasms with some tenderness to palpation
--- OUTSIDE RECORDS SUMMARY | 2025-07-08 11:00 | XMS_ITS ---
Author Organization [facility] Address [address] [place] [id number] Care Team Providers Care Registered Nurse Name Role Phone Be Terrazas Primary Care Provider Erasmo Brooks [phone] Allergies Allergen (clinical drug ingredient) Drug/Non Drug Allergy documented on EMR Reaction Allergy Type Onset Date Status Medicinal cephalosporin and acting as antibacterial agent (FN) SPORINS (uncoded) rash Allergy Active Results Component Value Reference Range Notes Glycohemoglobin A1c (in hous e) Reviewed date:07/09/2025 12:59:51 PM Interpretation:5.6 Performing Lab: Notes/Report: 5.6 glycohemoglobin 5.6% 5 - 6.5 % P-Comprehensive Metabolic Pa niyah (CMP) Reviewed date:07/14/2025 02:56:22 PM Interpretation:bili 1.4 Performing Lab: Notes/Report: Test performed by [facility] [address] , [address], [place] [address] Marcelle Dial MD, PhD, [facility], [employer] CLIA: [id number] Sodium 138 135-145 mmol/L Potassium 5.0 3.5-5.3 mmol/L Chloride 100 97-108 mmol/L CO2 30 20-32 mmol/L Glucose 88 65-99 mg/dL BUN 19 6-20 mg/dL Creatinine 1.01 0.70-1.30 mg/dL Calcium 10.1 8.6-10.4 mg/dL eGFR by Creatinine 89 >59 mL/min/1.73m2 Protein 7.7 6.0-8.3 g/dL Albumin 4.7 3.5-5.3 g/dL Alkaline Phosphatase 61 40-129 IU/L ALT (SGPT) 16 <5-55 IU/L AST (SGOT) 16 <5-46 IU/L Bilirubin, Total 1.4 <0.2-1.2 mg/dL A/G Ratio 1.6 1.1-2.5 P-Lipid Panel Reviewed date:07/14/2025 02:56:22 PM Interpretation:chol 208, trigs 178, hdl 32, chol//hdl 6.5, ldl 140, ldl/hdl 4.36 Performing Lab: Notes/Report: Test performed by [facility], [address] , [place] [address] Marcelle Dial MD, PhD, FCAP, [employer] CLIA: [id number] Lipid Panel Footnote See Below *Based on optimal reference values. Please refer to the DOS for additional information regarding diagnostic lipid reference ranges, patient management based on the recently updated lipid guidelines ([place] [employer]/[place] Heart Association Task Force on Clinical Practice Guidelines (2018), and pediatric diagnostic lipid reference values (<18 years old). Total Cholesterol 208 <200 mg/dL Triglycerides 178 <150 mg/dL HDL Cholesterol 32 >40 mg/dL Total Cholesterol / HDL Ratio* 6.50 <4.99 Ratio Non-HDL Cholesterol 176 <130 mg/dL LDL Cholesterol (Calculation) 140 <100 mg/dL LDL / HDL Ratio* 4.39 <2.49 Ratio LDL Cholesterol Patient History Test Date: 05/10/2024 LDL Results: 138 Units: mg/dL % Change: - Test Date: 07/08/2025 LDL Results: 140 Units: mg/dL % Change: +1% P-PSA Reviewed date:07/14/2025 02:56:22 PM Interpretation:Normal Performing Lab: Notes/Report: Test performed by [facility] [address] , [place] [address] Marcelle Dial MD, PhD, [facility], [employer] CLIA: [id number] PSA 0.54 <4.00 ng/mL Please note this is an ultrasensitive PSA assay with a lower limit of detection of 0.014 ng/mL. This test is performed by the [employer] ECLIA methodology. Values obtained with different assay methods or kits cannot be directly compared. REASON FOR VISIT wrist and bloodwork Medications Medication SIG (Take, Route, Fr equency, Duration) Notes Start Date End Date Status Meloxicam 15 MG 1 tablet Orally Once a day 025 Active Tylenol 325 MG 1 tablet as needed O rally every 6 hrs Active Terbinafine HCl 250 MG 1 tablet Orally Once a day 07/08/2025 Active Vital Signs Blood pressure systolic 128 mm Hg 07/08/20 25 Blood pressure diastolic 76 mm Hg 025 Heart Rate 75 /min 07/08/2025 Height 72.75 in 07/08/2025 Weight 373 lbs 07/08/2025 BMI 49.54 kg/m2 07/08/2025 Encounters Encounter Location Date Provider Diagnosis [facility] [facility] [address] [place] [id number] 07/08/2025 Erasmo Brooks Onychomycosis B35.1 ; Tendinitis of right wrist M77.8 ; Pure hypercholesterolemia E78.00 ; Prostate cancer screening Z12.5 and Hyperglycemia R73.9 Assessments Encounter Date Diagnosis (ICD Code) Assessment Notes Treatment Notes Treatment Clinical Notes Section Notes 07/08/2025 Onychomycosis (ICD-1 0 - B35.1) 07/08/2025 Tendinitis of right wrist (ICD-10 - M77.8) 07/08/2025 Pure hypercholesterolemia (ICD-10 - E78.00) 07/08/2025 Prostate cancer screening (ICD-10 - Z12.5) 07/08/2025 Hyperglycemia (ICD-1 0 - R73.9) Plan Of Treatment Medication Medication Name Sig Start Date Stop Date Notes Meloxicam 15 MG 1 tablet Orally Once a day 07/08/2025 Terbinafine HCl 250 MG 1 tablet Orally Once a day 07/08/20 25 Next Appt Details Follow Up: 2 Weeks,prn, Tali on: Provider Name:Be Galo , 08/18/2025 04:15:00 PM, [address], [address], [place], [place], [id number], Progress Notes * Sylwia ALICEAOB:1970 ( 54 yo M)Acc No.[id number]:07/08/2025 Progress Notes Patient: Colin SMITH Provider: Erasmo Brooks M.D. :1970 A ge:54 Y S ex:Male Date:07/08/2025 Address:[address] [place] [address], [place] [address] [id number] Pcp:Be Terrazas Subjective: * Chief Complaints: * 1 . Wrist and bloodwork. * HPI: C ardiology: Colin comes in for annual checkup and blood work. Denies : Chest Pain. D enies : Short of Breath. D enies : Palpitations. D enies : Leg Edema. Does have a family history of heart disease. G astroenterology: States had a colonoscopy last year. I do not have a report. W rist/Hand: New complaint today is that of pain on the dorsum of his right wrist that came on insidiously about 2 weeks ago. He recalls no specific injury. It is only painful with certain types of movement. Denies swelling. No loss of strength. He has been wearing a wrist splint for about a week which seems to have helped. D ermatology: He has a history of toenail fungus and has been offered treatment in the past but declined. Today he reports that the thickening of the nails is getting worse and he would like to try medication. * ROS: D ERMATOLOGY: no R lola. n o H kirstie. G ASTROENTEROLOGY: no N ausea. n o V omiting. n o D iarrhea.? U ROLOGY: no D ifficulty urinating. n o B lood in urine. * Medical History: H yperlipidemia, External Hemorrhoids, Kidney stones. * Surgical History: T onsillectomy 1994, Cholecystectomy 1997, Vasectomy 2009, C-scope/ Leal/ hyperplastic polyp x 1 07/15/2024. * Family History: F ather: , diagnosed [...] as needed Orally every 6 hrs , Discontinued tiZANidine HCl 4 MG Tablet 1 tablet as needed Orally Three times a day , Medication List reviewed and reconciled with the patient * Allergies: SPORINS : rash - Allergy. Objective: * Vitals: W t: 373, Temp: 97.5, BP: 128/76, HR: 75, Nurse: pe, Ht: 72.75, BMI:49.54. * Examination: G eneral Examination: Extremities: E xamination of the right wrist shows no obvious swelling or deformity. There is some mild tenderness on the dorsum of the wrist. Range of motion of the wrist is full. Strength testing is normal with no pain.. ? Assessment: * Assessment: 1. T endinitis of right wrist - M77.8 (Primary) 2 . O nychomycosis - B35.1? 3. P ure hypercholesterolemia - E78.00 4 . P rostate cancer screening - Z12.5 5 . H yperglycemia - R73.9 Plan: * Treatment: 2. O nychomycosis Start Terbinafine HCl Tablet, 250 MG, 1 tablet, Orally, Once a day, 30, Refills 2. 3. P ure hypercholesterolemia L AB: P-Comprehensive Metabolic Panel (CMP) (Collection Date & Time - 07/08/2025 02:54 PM) b maira 1.4 Value Reference Range A /G Ratio 1.6 1.1-2.5 - * A lbumin 4.7 3.5-5.3 - g/dL * A lkaline Phosphatase 61 40-129 - IU/L * A LT (SGPT) 16 <5-55 - IU/L * A ST (SGOT) 16 <5-46 - IU/L * B ilirubin, Total 1.4 H <0.2-1.2 - mg/dL * B UN 19 6-20 - mg/dL * C alcium 10.1 8.6-10.4 - mg/dL * C hloride 100 97-108 - mmol/L * C O2 30 20-32 - mmol/L * C reatinine 1.01 0.70-1.30 - mg/dL * G lucose 88 65-99 - mg/dL * P otassium 5.0 3.5-5.3 - mmol/L * S odium 138 135-145 - mmol/L * P rotein 7.7 6.0-8.3 - g/dL * e GFR by Creatinine 89 >59 - mL/min/1.73m2 * Awa White 07/14/2025 02 :56:17 PM EST > See phone encounter ?LAB: P-Lipid Panel (Collection Date & Time - 07/08/2025 02:54 PM)?chol 208, trigs 178, hdl 32, chol//hdl 6.5, ldl 140, ldl/hdl 4.36* Value Reference Range C holesterol / HDL Ratio 6.50 H <4.99 - Ratio * C holesterol 208 H <200 - mg/dL * H DL Cholesterol 32 L >40 - mg/dL * L DL Cholesterol (Calculation) 140 H <100 - mg/d L * L DL/HDL Ratio 4.39 H <2.49 - Ratio * N on-HDL Cholesterol 176 H <130 - mg/dL * T riglycerides 178 H <150 - mg/dL * L ipid Panel Footnote See Below - * Awa White 07/14/2025 02 :56:17 PM EST > See phone encounter 4.?Prostate cancer screening?LAB: P-PSA (Collection Date & Time - 07/08/2025 02:54 PM)?Normal* Value Reference Range P SA 0.54 <4.00 - ng/mL * Awa White 07/14/2025 02 :56:17 PM EST > See phone encounter 5.?Hyperglycemia?LAB: Glycohemoglobin A1c (in house) (Collection Date & Time - 07/08/2025)? 5.6* Value Reference Range g lycohemoglobin 5.6% 5 - 6.5 % * Elisabet Monroy 07/08/2025 03:58:39 PM EST > Provider reviewed results while patient in office. * Procedure Codes: 8 3036 GLYCATED HEMOGLOBIN TEST, Modifiers: QW , 3044F HG A1C LEVEL LT 7.0%, 3074F SYST BP LT 130 MM HG, 3078F DIAST BP < 80 MM HG * Follow Up: 2 Weeks,prn * Images: Billing Information: * Visit Code: 81218 Office Visit, Est Pt., Level 3. * Procedure Codes: 57529 GLYCATED HEMOGLOBIN TEST. Modifiers: QW 3044F HG A1C LEVEL LT 7.0%. 3074F SYST BP LT 130 MM HG. 3078F DIAST BP < 80 MM HG. * Electronic signature of Erasmo Brooks MD on 08/18/2025 at 04:41 PM EST Sign off status: Pending * Provider: Erasmo Brooks M.D. Date: 09/07/2024 Generated for Gen tee/Isabelle/eTransmitting on: 1 04:41 PM EST History and Physical Notes * HPI (History of Present Illness) Category Sub-Category Detail Notes Category Not es Cardiology Short of Breath Does have a family history of heart disease. Chest Pain Palpitations Leg Edema Examination Category Sub-Category Detail Notes Category Not es General Examination Extremities: Examination of the right wrist shows no obvious swelling or deformity. There is some mild tenderness on the dorsum of the wrist. Range of motion of the wrist is full. Strength testing is normal with no pain.
--- OUTSIDE RECORDS SUMMARY | 2025-08-08 11:00 | XMS_ITS ---
Author Organization [facility] Address [address] [place] [id number] Care Team Providers Care Ballistics Tester Name Role Phone Mk Be Primary Care Provider Angi Mendosa Unavailable [phone] Allergies Allergen (clinical drug ingredient) Drug/Non Drug Allergy documented on EMR Reaction Allergy Type Onset Date Status Medicinal cephalosporin and acting as antibacterial agent (FN) SPORINS (uncoded) rash Allergy Active Results Component Value Reference Range Notes CBC Fingerstick (in house) Reviewed date:08/08/2025 06:03:24 PM Interpretation: Performing Lab: Notes/Report: wbc 7.9 3.5 - 10 lym 19.0 15 - 50 mid 5.2 2 - 15 gran 75.8 35 - 80 rbc 5.72 3.5 - 5.5 hgb 16.7 11.5 - 16.5 hct 49.3 35 - 55 mcv 86.1 75 - 100 mch 29.3 25 - 35 mchc 34.0 31 - 38 plat 204 100 - 400 REASON FOR VISIT muscle spasms in back Medications Medication SIG (Take, Route, Fr equency, Duration) Notes Start Date End Date Status Tylenol 325 MG 1 tablet as needed O rally every 6 hrs Active Terbinafine HCl 250 MG 1 tablet Orally Once a day 07/08/2025 Active Methocarbamol 750 MG 1 tablet Orally 3 t imes a day; Duration: 30 days 08/08/2025 Active dexAMETHasone 4 MG 1 tablet Orally twic e a day; Duration: 5 days 08/08/2025 Active Vital Signs Blood pressure systolic 130 mm Hg 08/08/20 25 Blood pressure diastolic 78 mm Hg 025 Heart Rate 72 /min 08/08/2025 Height 72.75 in 08/08/2025 Weight 359 lbs 08/08/2025 BMI 47.69 kg/m2 08/08/2025 Encounters Encounter Location Date Provider Diagnosis [facility] [address] [facility] 36 [facility] [address] [place], [place] [id number] 08/08/2025 Angi Mendosa Muscle spasm of back M62.830 and Acute diarrhea R19.7 Assessments Encounter Date Diagnosis (ICD Code) Assessment Notes Treatment Notes Treatment Clinical Notes Section Notes 08/08/2025 Muscle spasm of back (ICD-10 - M62.830) 08/08/2025 Acute diarrhea (ICD-10 - R19.7) Fluids, rest, if diarrhea persists, will get a stool panel. Plan Of Treatment Medication Medication Name Sig Start Date Stop Date Notes Methocarbamol 750 MG 1 tablet Orally 3 t imes a day; Duration: 30 days 08/08/2025 dexAMETHasone 4 MG 1 tablet Orally twic e a day; Duration: 5 days 08/08/2025 Treatment Notes Assessment Notes Acute diarrhea Fluids, rest, if tono rrhea persists, will get a stool panel. Next Appt Details Follow Up: prn, Reason: Provider Name:Be gunter, 08/18/2025 04:15:00 PM, [address] [facility] 36 [facility], [address], [place], [id number], Progress Notes * Sylwia ALICEAOB:1970 ( 54 yo M)Acc No.[id number]:08/08/2025 Progress Notes Patient: Colin SMITH Provider: RONN Bunch :1970 A ge:54 Y S ex:Male Date:08/08/2025 Address:[address] [place] [address], [id number] Pcp:Be Terrazas Subjective: * Chief Complaints: * 1 . Muscle spasms in back. * HPI: Divine howard back: 54 year old male presents with c/o Low Back Pain P t states he has been having muscle spasms in his lower back for about a week. G astroenterology: c/o Diarrhea H as had diarrhea the past 2 days. Denies : Nausea. D enies : Vomiting. D enies : Fever.? * ROS: D ERMATOLOGY: no R lola. [...] as needed Orally every 6 hrs , Taking Terbinafine HCl 250 MG Tablet 1 tablet Orally Once a day , Discontinued Meloxicam 15 MG Tablet 1 tablet Orally Once a day , Medication List reviewed and reconciled with the patient * Allergies: SPORINS : rash - Allergy. Objective: * Vitals: W t: 359, Temp: 97.7, BP: 130/78, HR: 72, Nurse: pe, Ht: 72.75, BMI:47.69. * Examination: G eneral Examination: General Appearance: N AD. C hest: n ormal shape and expansion. H eart: R SR. L ungs: c lear to auscultation. A bdomen: b owel sounds present, soft and nontender. L ower back: Inspection: n ormal curvature of spine. P alpation:?no vertebral spine tenderness, there is tenderness and spasm along the right SI joint. S traight leg raising test: n egative bilaterally. M otor system: n ormal bilaterally. S ensory exam: n ormal bilateral LE. G ait: n ormal. R nicolas of motion: d ecreased at terminal ranges. Assessment: * Assessment: 1. M uscle spasm of back - M62.830 (Primary) S pecify :right lower back 2 . A cute diarrhea - R19.7 Plan: * Treatment: 2. A cute diarrhea L AB: CBC Fingerstick (in house) (Collection Date & Time - 08/08/2025) Value Reference Range w bc 7.9 3.5 - 10 * l ym 19.0 15 - 50 * m id 5.2 2 - 15 * g ran 75.8 35 - 80 * r bc 5.72 3.5 - 5.5 * h gb 16.7 11.5 - 16.5 * h ct 49.3 35 - 55 * m cv 86.1 75 - 100 * m ch 29.3 25 - 35 * m chc 34.0 31 - 38 * p lat 204 100 - 400 * Elisabet Monroy 08/08/2025 04:43:45 PM EST > Provider reviewed results while patient in office. Notes: Fluids, rest, if diarrhea persists, will get a stool panel.?? * Procedure Codes: 3 6416 CAPILLARY BLOOD DRAW, 79974 CBC WITH AUTO DIFF * Follow Up: p rn * Images: Billing Information: * Visit Code: 85727 Office Visit, Est Pt., Level 4. * Procedure Codes: 26595 CAPILLARY BLOOD DRAW. 26780 CBC WITH AUTO DIFF. * Electronic signature of RONN Yee on 08/18/2025 at 04:41 PM EST Sign off status: Pending * Provider: RONN Bunch Date: 10/09/2024 Generated for Gen tee/Isabelle/Melanyitting on: 04:41 PM EST History and Physical Notes * HPI (History of Present Illness) Category Sub-Category Detail Notes Category Not es Lower back Low Back Pain Pt states he has been having muscle spasms in his lower back for about a week Gastroenterology Fever Vomiting Diarrhea Has had diarrhea the past 2 days Nausea Examination Category Sub-Category Detail Notes Category Not es General Examination Heart: RSR Lungs: clear to auscultatio n Abdomen: bowel sounds present , soft and nontender General Appearance: NAD Chest: normal shape and exp ansion Lower back Straight leg raising test: negative bilat erally Motor system: normal bilaterally Sensory exam: normal bilateral LE Gait: normal Inspection: normal curvature of spine Palpation: no vertebral spine t enderness, there is tenderness and spasm along the right SI joint Range of motion: decreased at termina l ranges
--- OUTSIDE RECORDS SUMMARY | 2025-08-18 16:42 | XMS_ITS | Patient Health Record ---
Author Organization [facility] Address [address] [place] [phone] Care Team Providers Care Software Manager Name Role Phone Be Terrazas Primary Care Provider [phone] Erasmo Brooks Unavailable [phone] Angi Mendosa Unavailable [phone] Allergies Allergen (clinical drug ingredient) Drug/Non Drug [...] - 38 plat 204 100 - 400 P-PSA Reviewed date:07/14/2025 02:56:22 PM Interpretation:Normal Performing Lab: Notes/Report: Test performed by [facility], [facility] [address] [place] [address] , [address], [place] [address] Marcelle Dial MD, PhD, AP, [employer] CLIA: [id number] PSA 0.54 <4.00 ng/mL Please note this is an ultrasensitive PSA assay with a lower limit of detection of 0.014 ng/mL. This test is performed by the [employer] ECLIA methodology. Values obtained with different assay methods or kits cannot be directly compared. Glycohemoglobin A1c (in hous e) Reviewed date:07/09/2025 12:59:51 PM Interpretation:5.6 Performing Lab: Notes/Report: 5.6 glycohemoglobin 5.6% 5 - 6.5 % P-Comprehensive Metabolic Pa niyah (CMP) Reviewed date:07/14/2025 02:56:22 PM Interpretation:bili 1.4 Performing Lab: Notes/Report: Test performed by [facility] [address] [place] [address] [address], [place] [address] Marcelle Dial MD, PhD, AP, [employer] CLIA: [id number] Sodium 138 135-145 mmol/L Potassium 5.0 3.5-5.3 [...] 4.36 Performing Lab: Notes/Report: Test performed by [facility] [employer] [address] [place] [address] [address], [place] [address] Marcelle Dial MD, PhD, FCAP, [employer] CLIA: [id number] Lipid Panel Footnote See Below *Based on optimal reference values. Please refer to the DOS for additional information regarding diagnostic lipid reference ranges, patient management based on the recently updated lipid guidelines ([place] College [employer] Cardiology/[place] Heart Association Task Force on Clinical Practice [...] Results: 140 Units: mg/dL % Change: +1% Reason For Referral No Information Medications Medication SIG (Take, Route, Fr equency, Duration) Notes Start Date End Date Status tiZANidine HCl 4 MG 1 tablet Orally 3 times a day As needed 08/18/2025 Active Tylenol 325 MG 1 tablet as needed O rally every 6 hrs Active Terbinafine HCl 250 MG 1 tablet Orally Once a day 07/08/2025 Active Immunizations Vaccine Route Administration Date Status Comme jeff DT, 7 YEARS OR OLDER Unknown 10/20/1996 Administered xFlu shot- 6months-36 months of zxj-GSKO-IPLZ-trivalent Unknown 06/14/2017 Administered Problems Problem Type SNOMED Code ICD Code Onset Dates Problem Status W/U Status Risk Notes Problem Morbid obesity (921023563) Morbid obesity due to excess calories (E66.01) Active confirmed Problem Pure hypercholesterolemia (761505102) Pure hypercholesterolemia (E78.00) Active confirmed Vital Signs Heart Rate 69 /min 08/18/2025 Blood pressure diastolic 78 mm Hg 08/18/2025 Height 72.75 in 08/18/2025 Blood pressure systolic 132 mm Hg 08/18/2025 Weight 360.6 lbs 08/18/2025 BMI 47.9 kg/m2 08/18/2025 Encounters Encounter Location Date Provider Diagnosis [facility] [address] [place] [id number] 07/08/2025 R Lee Brooks Onychomycosis B35.1 ; Tendinitis of right wrist M77.8 ; Pure hypercholesterolemia E78.00 ; Prostate cancer screening Z12.5 and Hyperglycemia R73.9 [facility] [address] [place] [id number] 08/08/2025 Angi Crowdy Muscle spasm of back M62.830 and Acute diarrhea R19.7 [facility] [address] [place] [id number] 08/18/2025 Be [facility] Acute right-sided lo w back pain without sciatica M54.50 ; Muscle spasm of back M62.830 and Pain in left ankle and joints of left foot M25.572 [facility] [address] [place] [id number] 07/14/2025 Erasmo Brooks [facility] [address] [place] [id number] 08/08/2025 Be [facility] Assessments Encounter Date Diagnosis (ICD Code) Assessment Notes Treatment Notes Treatment Clinical Notes Section Notes 07/08/2025 Tendinitis of right wrist (ICD-10 - M77.8) 08/08/2025 Muscle spasm of back (ICD-10 - M62.830) 08/08/2025 Acute diarrhea (ICD- 10 - R19.7) Fluids, rest, if diarrhea persists, will get a stool panel. 08/18/2025 Muscle spasm of back (ICD-10 - M62.830) 07/08/2025 Onychomycosis (ICD-1 0 - B35.1) 08/18/2025 Acute right-sided lo w back pain without sciatica (ICD-10 - M54.50) 07/08/2025 Pure hypercholesterolemia (ICD-10 - E78.00) 08/18/2025 Pain in left ankle a nd joints of left foot (ICD-10 - M25.572) 07/08/2025 Prostate cancer screening (ICD-10 - Z12.5) 07/08/2025 Hyperglycemia (ICD-1 0 - R73.9) Plan Of Treatment Pending Test Test Name Order Date X ray : Ankle, left 08/18/2025 colonoscopy 05/10/2024 Next Appt Details Provider Name:Be Galo ry, 08/18/2025 04:15:00 PM, [address] [facility] [address] [facility], [address], [place], [place], [id number], Insurance Providers Payer Name Payer Address Payer Phone Subscriber Number Group Number Insured Name Patient Relationship to Insured Coverage Start Date Coverage End Date LAYLA BERMUDEZ [facility] [address] [place] [address] [id number] [facility] Doron Colin Self - patient is the insured Medical (General) History Medical History History ICD Code Hyperlipidemia External Hemorrhoids kidney stones Surgical History Surgery Date(Month/Year) Tonsillectomy 1994 Cholecystectomy 1997 Vasectomy 2009 C-scope/ Leal/ hyperplastic polyp x 1 07/15/2024
== END 2025-08-18 23:59 | disposition home or self-care (01) ==
LOC: RAD 16:39
PROVIDERS: PCP Family Medicine; Visit Provider Family Medicine
DX: M25.572 Pain in left ankle and joints of left foot (principal)

== ENCOUNTER 2025-08-18 16:55 | Outpatient (CLI) | payer BC, SELFPAY ==
--- NOTE | 2025-08-18 17:07 | XR_ITS ---
PROCEDURE INFORMATION: Exam: XR Left Ankle Exam date and time: 08/18/2025 4:59 PM Age: 54 years old Clinical indication: Pain; Ankle; Left; H/o stress fx's; Additional info: Medial lt ankle pain TECHNIQUE: Imaging protocol: Radiologic exam of the left ankle. Views: 3 or more views. COMPARISON: CR XR ANKLE LT MIN 3V 10/22/2020 5:05 PM FINDINGS: Bones/joints: No acute fracture. 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 Mild by malleolar soft tissue swelling. Soft tissues: See Bones/joints finding. IMPRESSION: 1. No evidence for acute fracture. 2. 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 Mild by malleolar soft tissue swelling.
== END 2025-08-18 23:59 | disposition home or self-care (01) ==
LOC: RAD 16:58
PROVIDERS: PCP Family Medicine; Visit Provider Family Medicine
DX: M25.572 Pain in left ankle and joints of left foot (principal); M79.89 Other specified soft tissue disorders; R93.6 Abnormal findings on diagnostic imaging of limbs
CPT/HCPCS: 73610